=== PATIENT | male | born 1985 | race Caucasian/White ===

== ENCOUNTER 2019-07-30 18:23 | Emergency (ER) | payer MEDICAID, OTHER ==
[~2019-07-30] VITALS: Ht 167.6 cm; Wt 86.8 kg
[2019-07-30] MEDS ORDERED: LIDOcaine 1% w/EPI 1:100,000 30ml vial (MDV) SQ ONE (19:30)
[2019-07-30] MEDS ORDERED: LIDOcaine 1% w/epiNEPHrine 1:200,000 30ml vial IM ONE (19:30)
--- NOTE | 2019-07-30 19:36 | NUR ---
RELIEVING RN FOR LUNCH, PT IS RESTING QUIETLY ON B[facility] RIV[place] TRAY AT BEDSIDE
[2019-07-30] MEDS ORDERED: SULF1TAB49 PO (19:47)
[2019-07-30] MEDS ORDERED: CEPH500C5 PO (19:47)
[2019-07-30 20:06] VITALS: BP 102/56
== END 2019-07-30 22:30 | disposition home or self-care (01) ==
LOC: ER 18:23
DX: L02.413 Cutaneous abscess of right upper limb (principal); F15.90 Other stimulant use, unspecified, uncomplicated; F11.90 Opioid use, unspecified, uncomplicated; Z79.2 Long term (current) use of antibiotics
CPT/HCPCS: 10060; 99283

== ENCOUNTER 2019-09-07 16:19 | Emergency (ER) | payer MEDICAID, OTHER ==
[~2019-09-07] VITALS: Ht 170.2 cm; Wt 86.4 kg
[2019-09-07] MEDS ORDERED: acetaminophen 325mg tablet PO ONE (17:05)
[2019-09-07] MEDS ORDERED: ibuprofen 200mg tablet PO ONE (18:40)
[2019-09-07] MEDS ORDERED: normal saline 1000ml 1,000 ML IV ONE (18:45)
--- NOTE | 2019-09-07 19:00 | NUR ---
pt asking to leave unit . states she is feeling like she perhaps doesnt need to be seen. states that she is concerned about her leg and wanted advisment notified dr prakash of pt concerns
[2019-09-07 19:02] LABS: BASOPHILS % (AUTO) 0.5 % (0-1); EOSINOPHILS % (AUTO) 0.3 % (0-6); HEMATOCRIT 39.4 % (42.0-52.0); HEMOGLOBIN 13.4 g/dl (14.0-17.9); LYMPHOCYTES # (AUTO) 0.4 X10'3 (1.1-4.8); LYMPHOCYTES % (AUTO) 8.6 % (21-51); MEAN CORPUSCULAR HEMOGLOBIN 29.8 PG (27.0-31.0); MEAN CORPUSCULAR HGB CONC 34.1 g/dL (33.0-36.5); MEAN CORPUSCULAR VOLUME 87.5 FL (78-98); MONOCYTES # (AUTO) 0.8 X10'3 (0-0.9); MONOCYTES % (AUTO) 16.9 % (2-12); NEUTROPHILS # (AUTO) 3.5 X10'3 (1.8-7.7); NEUTROPHILS % (AUTO) 73.7 % (42-75); PLATELET COUNT 117 X10'3 (140-440); RED BLOOD COUNT 4.51 X10'6 (4.70-6.10); RED CELL DISTRIBUTION WIDTH 13.6 % (11.5-14.5); WHITE BLOOD COUNT 4.8 X10'3 (4.5-11.0)
--- NOTE | 2019-09-07 19:05 | NUR ---
dr prakash to see pt
[2019-09-07 19:12] LABS: ALANINE AMINOTRANSFERASE 67 U/L (12-78); ALBUMIN 3.5 G/DL (3.4-5.0); ALBUMIN/GLOBULIN RATIO 0.7 (1.1-1.5); ALKALINE PHOSPHATASE 88 IU/L (46-116); ANION GAP 8 (8-16); ASPARTATE AMINO TRANSFERASE 29 U/L (10-37); BILIRUBIN,TOTAL 0.5 MG/DL (0.1-1.0); BLOOD UREA NITROGEN 13 MG/DL (7-18); BUN/CREATININE RATIO 14.9 (5.4-32.0); CALCIUM 8.8 MG/DL (8.5-10.1); CHLORIDE 101 MMOL/L (99-107); CREATININE 0.87 MG/DL (0.60-1.10); GLUCOSE 98 MG/DL (70-104); POTASSIUM 4.2 MMOL/L (3.5-5.1); SODIUM 136 MMOL/L (135-145); TOTAL PROTEIN 8.2 G/DL (6.4-8.2); eGFR > 90 ML/MIN
--- NOTE | 2019-09-07 19:15 | NUR ---
pt pleased she was seen by the md . states that she is glad she was seen . and will be following up with dr gilliam next week after her abx are all gone .
[2019-09-07] MEDS ORDERED: TAM75C PO (19:26)
[2019-09-07 21:53] VITALS: BP 131/72
== END 2019-09-07 21:58 | disposition home or self-care (01) ==
LOC: ER 16:20
DX: J11.1 Influenza due to unidentified influenza virus with other respiratory manifestations (principal); R11.10 Vomiting, unspecified; F17.200 Nicotine dependence, unspecified, uncomplicated; F15.90 Other stimulant use, unspecified, uncomplicated; F11.90 Opioid use, unspecified, uncomplicated; Z79.899 Other long term (current) drug therapy
CPT/HCPCS: 80053; 85025; 87502; 87503; 96360; 96361; 99283; J7030

== ENCOUNTER 2020-08-10 18:29 | Emergency (ER) | payer MEDICAID ==
[~2020-08-10] VITALS: Ht 162.6 cm; Wt 100.0 kg
[2020-08-10] MEDS ORDERED: AMOX500C2 PO (19:09)
[2020-08-10 19:17] VITALS: BP 106/61
== END 2020-08-10 19:30 | disposition home or self-care (01) ==
LOC: ER 18:29
DX: H66.91 Otitis media, unspecified, right ear (principal); J02.9 Acute pharyngitis, unspecified; F17.200 Nicotine dependence, unspecified, uncomplicated; F15.90 Other stimulant use, unspecified, uncomplicated; F11.90 Opioid use, unspecified, uncomplicated; Z72.89 Other problems related to lifestyle; Z79.899 Other long term (current) drug therapy
CPT/HCPCS: 99283

== ENCOUNTER 2024-07-11 19:21 | Emergency (ER) | payer MEDICAID ==
[~2024-07-11] VITALS: Ht 167.6 cm; Wt 109.1 kg
[2024-07-11 19:25] VITALS: O2SAT 99
[2024-07-11] MEDS ORDERED: tetanus & diphtheria toxoid (Td) vaccine 0.5ml IMVAC ONE (20:10)
[2024-07-11] MEDS: TETanus/Pertussis (Acell)/Diphther VAC/PF (Tdap-Adult) 0.5ml syringe IMVAC ONE (20:20)
[2024-07-11 20:35] VITALS: BP 110/82; PULSE 88; RESP 16; TEMP 98.5
== END 2024-07-11 20:37 | disposition home or self-care (01) ==
LOC: ER 19:22
DX: S61.512A Laceration without foreign body of left wrist, initial encounter (principal); F15.90 Other stimulant use, unspecified, uncomplicated; F11.90 Opioid use, unspecified, uncomplicated; Z72.89 Other problems related to lifestyle; W26.8XXA Contact with other sharp object(s), not elsewhere classified, initial encounter; Y93.89 Activity, other specified; Y92.89 Other specified places as the place of occurrence of the external cause; Y99.8 Other external cause status
CPT/HCPCS: 90471; 90715; 99284

== ENCOUNTER 2024-08-13 22:57 | Emergency (ER) | payer MEDICAID ==
[~2024-08-13] VITALS: Ht 167.6 cm; Wt 109.0 kg
[2024-08-13] MEDS ORDERED: iohexol 350MG/ML 100ml bottle IV ONE (23:11)
[2024-08-13 23:18] LABS: BASOPHILS % (AUTO) 0.3 % (0-1); EOSINOPHILS # (AUTO) 0.1 X10'3 (0-0.9); EOSINOPHILS % (AUTO) 0.8 % (0-6); HEMATOCRIT 40.2 % (42.0-52.0); HEMOGLOBIN 13.2 g/dl (14.0-17.9); LYMPHOCYTES # (AUTO) 2.3 X10'3 (1.1-4.8); LYMPHOCYTES % (AUTO) 25.1 % (21-51); MEAN CORPUSCULAR HEMOGLOBIN 29.2 PG (27.0-31.0); MEAN CORPUSCULAR HGB CONC 32.9 g/dL (33.0-36.5); MEAN CORPUSCULAR VOLUME 88.8 FL (78-98); MEAN PLATELET VOLUME 8.2 FL (7.4-10.4); MONOCYTES # (AUTO) 0.6 X10'3 (0-0.9); MONOCYTES % (AUTO) 6.5 % (2-12); NEUTROPHILS # (AUTO) 6.1 X10'3 (1.8-7.7); NEUTROPHILS % (AUTO) 67.3 % (42-75); PLATELET COUNT 173 X10'3 (140-440); RED BLOOD COUNT 4.53 X10'6 (4.70-6.10); RED CELL DISTRIBUTION WIDTH 14.6 % (11.5-14.5); WHITE BLOOD COUNT 9.1 X10'3 (4.5-11.0)
[2024-08-13 23:31] LABS: APTT 23 SECONDS (22-32); PROTHROMBIN TIME 10.2 SECONDS (9.0-12.0)
[2024-08-13 23:41] LABS: ALANINE AMINOTRANSFERASE 20 U/L (12-78); ALBUMIN 3.5 G/DL (3.4-5.0); ALBUMIN/GLOBULIN RATIO 0.9 (1.1-1.5); ALKALINE PHOSPHATASE 82 IU/L (46-116); ANION GAP 8 (8-16); ASPARTATE AMINO TRANSFERASE 14 U/L (10-37); BILIRUBIN,TOTAL 0.3 MG/DL (0.1-1.0); BLOOD UREA NITROGEN 23 MG/DL (7-18); BUN/CREATININE RATIO 19.8 (10.0-20.0); CALCIUM 8.8 MG/DL (8.5-10.1); CHLORIDE 105 MMOL/L (99-107); CREATININE 1.16 MG/DL (0.60-1.10); GLUCOSE 101 MG/DL (70-104); SODIUM 143 MMOL/L (135-145); TOTAL PROTEIN 7.5 G/DL (6.4-8.2); eCRCL 78 ML/MIN; eGFR 70 ML/MIN
[2024-08-13 23:52] LABS: CREATINE KINASE 57 U/L (39-308); CREATINE KINASE MB 1.1 ng/ml (0.3-3.6); ETHANOL < 10 MG/DL (<10)
[2024-08-13] MEDS: ceFAZolin/D5W- 1GM premix 50 ML IV SCH (23:55)
[2024-08-13] MEDS: LIDOCAINE 2% (20mg/ml) w/EPINEPHRINE 1:200,000-PF 10 ML inj. SQ ONE (23:57)
[2024-08-14] MEDS: TETanus/Pertussis (Acell)/Diphther VAC/PF (Tdap-Adult) 0.5ml syringe IMVAC ONE
[2024-08-14 00:59] LABS: BILIRUBIN,URINE NEGATIVE (Neg); CLARITY,URINE CLEAR (Clear); COLOR,URINE YELLOW (Yellow); GLUCOSE, URINE NEGATIVE (Neg); KETONES,URINE NEGATIVE (Neg); LEUKOCYTE ESTERASE ,URINE NEGATIVE (Neg); NITRITES, URINE NEGATIVE (Neg); OCCULT BLOOD,URINE NEGATIVE (Neg); PROTEIN,URINE TRACE mg/dl (Neg); URINE AMPHETAMINE SCREEN POSITIVE (Neg); URINE BARBITUATE SCREEN NEGATIVE (Neg); URINE BENZODIAZEPINES SCREEN NEGATIVE (Neg); URINE CANNABINOID SCREEN POSITIVE (Neg); URINE COCAINE SCREEN NEGATIVE (Neg); URINE METHADONE SCREEN NEGATIVE (Neg); URINE OPIATE SCREEN POSITIVE (Neg); URINE PHENCYCLIDINE SCREEN NEGATIVE (Neg)
[2024-08-14 01:13] LABS: UA COLLECTION TYPE CLN CATCH MIDSTREAM
[2024-08-14 01:19] LABS: TOTAL CELLS COUNTED 100
[2024-08-14 01:20] LABS: PLATELET ESTIMATE NORMAL; SMUDGE CELLS FEW
[2024-08-14 01:27] LABS: MUCUS STRANDS FEW /LPF (Neg); SQUAMOUS EPITHELIAL CELL,UR FEW /LPF (FEW)
[2024-08-14 01:29] LABS: BACTERIA,URINE FEW /HPF (Neg); RBC,URINE 0-2 /HPF (0-2); WBC,URINE 0-4 /HPF (0-4)
[2024-08-14 01:31] LABS: SPERM MODERATE /HPF (NEGATIVE)
[2024-08-14 01:35] VITALS: BP 120/73; PULSE 93; RESP 11; TEMP 98.6; O2SAT 95
== END 2024-08-14 01:45 | disposition left against medical advice (07) ==
LOC: EEVIPCON 22:57 → ER 22:57
DX: S21.129A Laceration with foreign body of unspecified front wall of thorax without penetration into thoracic cavity, initial encounter (principal); S41.012A Laceration without foreign body of left shoulder, initial encounter; S31.119A Laceration without foreign body of abdominal wall, unspecified quadrant without penetration into peritoneal cavity, initial encounter; F15.90 Other stimulant use, unspecified, uncomplicated; R79.1 Abnormal coagulation profile; R07.89 Other chest pain; X99.8XXA Assault by other sharp object, initial encounter; Y93.89 Activity, other specified; Y92.89 Other specified places as the place of occurrence of the external cause; Y99.8 Other external cause status
CPT/HCPCS: 12032; 36415; 71045; 71260; 74177; 80053; 80305; 80320; 81001; 82550; 82553; 83874; 84484; 85007; 85025; 85610; 85730; 86885; 86900; 86901; 90471; 90715; 93005; 96365; 99285; A6258; J0690; J7030; Q9967; A6449

== ENCOUNTER 2024-12-24 00:40 | Emergency (ER) | payer MEDICAID ==
[~2024-12-24] VITALS: Ht 170.2 cm; Wt 92.6 kg
[2024-12-24 00:42] VITALS: BP 138/82; PULSE 108; RESP 18; O2SAT 99
[2024-12-24] MEDS: cephalexin 250mg capsule PO ONE (01:49)
[2024-12-24] MEDS: sulfamethoxazole/trimethoprim DS (800/160mg) tablet PO ONE (01:49)
[2024-12-24] MEDS: LIDOcaine 1% W/epiNEPHrine 1:100,000 20ml vial IJ ONE (01:50)
[2024-12-24] MEDS ORDERED: SULF1TAB45 PO (02:03)
[2024-12-24] MEDS ORDERED: CEPH-585 PO (02:03)
[2024-12-24 02:29] VITALS: TEMP 97.5
== END 2024-12-24 02:35 | disposition home or self-care (01) ==
LOC: ER 00:40
DX: L02.511 Cutaneous abscess of right hand (principal); F15.90 Other stimulant use, unspecified, uncomplicated; F11.90 Opioid use, unspecified, uncomplicated; Z72.89 Other problems related to lifestyle; Z79.899 Other long term (current) drug therapy
CPT/HCPCS: 10060; 99283; A6266; A6258; A6449